=== PATIENT | female | born 2000 | race Caucasian/White ===

== ENCOUNTER 2023-09-11 23:25 | Emergency (ER) | payer SELFPAY ==
[~2023-09-11] VITALS: Ht 157.5 cm; Wt 58.2 kg
[2023-09-11 23:30] VITALS: TEMP 98.3
[2023-09-11 23:48] VITALS: BP 135/86; PULSE 101; RESP 20; O2SAT 97
== END 2023-09-11 23:44 | disposition home or self-care (01) ==
LOC: ER 23:26
DX: Z04.1 Encounter for examination and observation following transport accident (principal); V89.2XXA Person injured in unspecified motor-vehicle accident, traffic, initial encounter; Y93.89 Activity, other specified; Y92.89 Other specified places as the place of occurrence of the external cause; Y99.8 Other external cause status
CPT/HCPCS: 99283